=== PATIENT | female | born 1970 | race Caucasian/White ===

== ENCOUNTER → 2016-09-09 | Outpatient (CLI) | payer MEDICARE, BC ==
--- NOTE | 2016-09-12 11:52 | MM ---
Reason for exam: screening (asymptomatic). Last mammogram was performed 2 years and 1 month ago. History: Family history of breast cancer in paternal grandmother. Physical Findings: A clinical breast exam by your physician is recommended on an annual basis and results should be correlated with mammographic findings. MG 3D Screening Mammo W/Cad Bilateral CC and MLO view(s) were taken. Prior study comparison: July 23, 2013, bilateral digital screening mammo w/CAD. The breast tissue is extremely dense which could obscure a lesion on mammography. Finding: There are typically benign round, regional calcifications in the lower quadrant of the right breast. Previous mammotome biopsy in the right breast. There is no discrete abnormality. ASSESSMENT: Benign, BI-RAD 2 RECOMMENDATION: Routine screening mammogram of both breasts in 1 year.
== END | disposition home or self-care (01) ==
LOC: RADMAMWWP 11:00
PROVIDERS: ATTEND Obstetrics & Gynecology
DX: Z12.31 Encounter for screening mammogram for malignant neoplasm of breast (principal)
CPT/HCPCS: 77063; G0202

== ENCOUNTER → 2016-12-02 | Outpatient (CLI) | payer MEDICARE, BC ==
[2016-12-02 10:48] LABS: Basophils # (A) 0.1 k/uL (0-0.2); Basophils % (A) 1 %; CH 32.1; CHCM 33.1; Eosinophils % (A) 0 %; HCT 49.1 % (34.0-46.0); HDW 2.21; HGB 15.7 gm/dL (11.4-16.0); Luc # (Auto) 0.13; Luc % (Auto) 1; Lymphocytes # (A) 2.5 k/uL (1.0-4.8); Lymphocytes % (A) 26 %; MCH 31.2 pg (25.0-35.0); MCV 97.7 fL (80.0-100.0); Mean Platelet Volume 7.6; Monocytes # (A) 0.6 k/uL (0-1.0); Monocytes % (A) 6 %; Neutrophils # (A) 6.1 k/uL (1.3-7.7); Neutrophils % (A) 65 %; RBC 5.03 m/uL (3.80-5.40); RDW 13.9 % (11.5-15.5); WBC 9.3 k/uL (3.8-10.6); WBC (Perox) 9.06
[2016-12-02 10:56] LABS: ALT 33 U/L (9-52); AST 25 U/L (14-36); Alkaline Phosphatase 46 U/L (38-126); Anion Gap 11 mmol/L; Blood Urea Nitrogen 10 mg/dL (7-17); Calcium 9.7 mg/dL (8.4-10.2); Carbon Dioxide 26 mmol/L (22-30); Chloride 104 mmol/L (98-107); Glucose 62 mg/dL (74-99); Non-African American GFR(MDRD) >60 (>60 ml/min/1.73 sqM); Potassium 4.4 mmol/L (3.5-5.1); Sodium 141 mmol/L (137-145); Total Bilirubin 0.8 mg/dL (0.2-1.3); Total Protein 6.9 g/dL (6.3-8.2)
== END | disposition home or self-care (01) ==
LOC: LABWHC1 09:57
PROVIDERS: ATTEND Physical Medicine & Rehabilitation
DX: R53.83 Other fatigue (principal); R53.1 Weakness
CPT/HCPCS: 36415; 80053; 84439; 84443; 85025

== ENCOUNTER → 2016-12-02 | Outpatient (CLI) | payer OTHER ==
--- NOTE | 2016-12-02 10:19 | CT ---
EXAMINATION TYPE: CT brain wo con DATE OF EXAM: 12/02/2016 COMPARISON: NONE HISTORY: Sinus headache. Chronic sinusitis. History of chronic obstructive sleep apnea and tobacco ab use. CT DLP: 1050.4 mGycm. Automated Exposure Control for Dose Reduction was Utilized. TECHNIQUE: CT scan of the head is performed without contrast. FINDINGS: There is no acute intracranial hemorrhage, mass effect, or midline shift identified. Sca ttered areas of hypoattenuation are seen within the periventricular and subcortical white matter, mos t pronounced within the right frontal lobe. There is is symmetric prominence of the sulci and ventric ular system without evidence of transependymal edema. No evidence of hydrocephalus. There is inward bowing of the left lamina papyracea from prior fracture. Single septum is seen within the right maxillary sinus. Scattered mucosal thickening is present within the ethmoid sinuses. The r emaining visualized paranasal sinuses and mastoid air cells are well aerated. No fluid within the inn er ears. IMPRESSION: 1. No acute intracranial hemorrhage, mass effect, or midline shift is seen. 2. Nonspecific white matter changes, likely on the basis of chronic microangiopathy. 3. Scant mucosal thickening within the ethmoid sinuses with appropriate aeration of the remainder of the visualized paranasal sinuses and mastoid air cells. Note the entirety of the paranasal sinuses ar e not evaluated and CT sinus could be performed for further evaluation of the ostiomeatal complexes a nd paranasal sinuses. 4. Fracture deformity of the left lamina papyracea, from prior injury.
== END | disposition home or self-care (01) ==
LOC: RADCTMAIN 09:35 → EEVIPCON 09:40
PROVIDERS: ATTEND Physical Medicine & Rehabilitation
DX: R90.82 White matter disease, unspecified (principal); J34.89 Other specified disorders of nose and nasal sinuses; M95.9 Acquired deformity of musculoskeletal system, unspecified; G91.9 Hydrocephalus, unspecified
CPT/HCPCS: 70450

== ENCOUNTER → 2017-11-08 | Outpatient (CLI) | payer MEDICARE, BC ==
--- NOTE | 2017-11-09 15:18 | MM ---
Reason for exam: screening (asymptomatic). Last mammogram was performed 1 year and 2 months ago. History: Family history of breast cancer in paternal grandmother. Physical Findings: A clinical breast exam by your physician is recommended on an annual basis and results should be correlated with mammographic findings. MG 3D Screening Mammo W/Cad Bilateral CC and MLO view(s) were taken. Prior study comparison: September 09, 2016, bilateral MG 3d screening mammo w/cad. August 05, 2014, right breast MG work up mamm w CAD RT. The breast tissue is heterogeneously dense. This may lower the sensitivity of mammography. Finding: There are typically benign round, segmental calcifications in the posterior position of the right breast. Previous mammotome biopsy in the right breast. There is a chronic nodularity in the right breast at clip. There is no discrete abnormality. ASSESSMENT: Benign, BI-RAD 2 RECOMMENDATION: Routine screening mammogram of both breasts in 1 year.
== END | disposition home or self-care (01) ==
LOC: RADMAMWWP 09:26
PROVIDERS: ATTEND Obstetrics & Gynecology
DX: Z12.31 Encounter for screening mammogram for malignant neoplasm of breast (principal)
CPT/HCPCS: 77063; 77067

== ENCOUNTER → 2018-02-23 | Outpatient (CLI) | payer MEDICARE, BC ==
--- NOTE | 2018-02-23 12:31 | CT ---
EXAMINATION TYPE: CT brain wo con DATE OF EXAM: 02/23/2018 COMPARISON: 12/02/2016 INDICATION: Flaccid hemiplegia affecting right dominant DLP: 1138 mGycm, Automated exposure control for dose reduction was used. CONTRAST: None CT of the brain is performed utilizing 3 mm thick sections through the posterior fossa and 3 mm thick sections through the remaining calvarium. Study is performed within 24 hours of arrival to the hosp [facility]. No abnormal hyperdensity is present to suggest an acute intracranial hemorrhage. No mass lesion is evident. No acute infarcts are evident. There is a stable hypodense area within the subcortical white matter o f the right frontal lobe Ventricles and sulci are appropriate for the patient age. Paranasal sinuses and mastoid air cells within the [id number] are clear. IMPRESSIONS: 1. No acute intracranial process. 2. Stable right frontal white matter changes
== END | disposition home or self-care (01) ==
LOC: RADCTMAIN 11:19
PROVIDERS: ATTEND Physical Medicine & Rehabilitation
DX: R90.89 Other abnormal findings on diagnostic imaging of central nervous system (principal)
CPT/HCPCS: 70450

== ENCOUNTER 2018-08-09 12:54 | Emergency (ER) | payer MEDICARE, BC ==
[2018-08-09 15:23] VITALS: RESP 16
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
--- NOTE | 2018-08-09 16:17 | CT ---
EXAMINATION TYPE: CT orbits wo con DATE OF EXAM: 08/09/2018 COMPARISON: None HISTORY: Left orbit pain and contusion post fall. CT DLP: 647.8 mGycm Automated exposure control for dose reduction was used. FINDINGS: Orbits are examined in the axial plane at 2 mm thick sections. Reconstructed images in the coronal pl ane are reviewed on the computer. The globes are symmetrical. Small amount of air is adjacent to the right orbit likely under the lid. Nasal bones are intact. Greater wings of sphenoid are normal. Sec traumatic arches are intact. Maxill maxine sinus appiah are intact. Paranasal sinuses are clear. Soft tissues appear within normal limits. There is right septal deviation. Estimated units are patent. Orbital floors are normal. IMPRESSION: NORMAL BILATERAL ORBITS.
--- NOTE | 2018-08-09 16:31 | CT ---
EXAMINATION TYPE: CT brain anjelica wo con DATE OF EXAM: 08/09/2018 COMPARISON: 02/23/2018 HISTORY: pain post fall CT DLP: 869.3 mGycm, Automated exposure control for dose reduction was used. CONTRAST: Patient injected with 0 mL of Isovue 300. CT of the brain is performed utilizing 3 mm thick sections through the posterior fossa and 3 mm thick sections through the remaining calvarium. Study is performed within 24 hours of arrival to the hospital. No abnormal hyperdensity is present to suggest an acute intracranial hemorrhage. No mass lesion is evident. No acute infarcts are evident. There is an old hypodensity through the right frontal lobe may be an anterior subcortical infarct which was present previously. Ventricles and sulci are appropriate for the patient age. Paranasal sinuses and mastoid air cells within the [id number]-ls-dxcs are clear. IMPRESSIONS: 1. No acute intracranial process. 2. Old subcortical hypodensity may be prior ischemic change. CT cervical spine. COMPARISON: None CT of the cervical spine is performed in the axial plane at 2 mm thick sections. Reconstructed image s in the coronal, and sagittal plane are reviewed on the computer. No acute fractures are evident. Cervical kyphosis is present centered at C5. There is narrowing of the C5-6 C6-7 disc space. Large anterior vertebral body spurs present at C6 Vertebral body heights are preserved. No spinal canal stenosis is evident. No neural foraminal stenosis is evident. IMPRESSIONS: 1. Cervical kyphosis. 2. No acute osseous abnormality.
[2018-08-09 17:25] VITALS: BP 103/67; PULSE 74; TEMP 98.1
== END 2018-08-09 17:24 | disposition home or self-care (01) ==
LOC: EC 12:54
DX: S05.12XA Contusion of eyeball and orbital tissues, left eye, initial encounter (principal); F17.200 Nicotine dependence, unspecified, uncomplicated; Z87.820 Personal history of traumatic brain injury; Z79.899 Other long term (current) drug therapy; Z88.8 Allergy status to other drugs, medicaments and biological substances; W01.0XXA Fall on same level from slipping, tripping and stumbling without subsequent striking against object, initial encounter; Y93.01 Activity, walking, marching and hiking
CPT/HCPCS: 70450; 70480; 72125; 99284

== ENCOUNTER 2018-09-02 12:50 | Emergency (ER) | payer MEDICARE, BC ==
[2018-09-02 12:58] VITALS: TEMP 98.2
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
--- NOTE | 2018-09-02 13:52 | CT ---
EXAMINATION TYPE: CT brain cspine wo con DATE OF EXAM: 09/02/2018 COMPARISON: Previous study dated 08/09/2018 HISTORY: Fall CT DLP: 1222 mGycm Automated exposure control for dose reduction was used. TECHNIQUE: CT scan of the head and cervical spine are performed without contrast. FINDINGS: BRAIN: There is a hypodensity in the right frontal lobe, unchanged from previous and likely due to pr evious ischemic insult. Central structures are midline. There is no evidence hydrocephalus. No acute focal lesion, mass effec t or midline shift is seen. I do not see evidence of intracranial blood. Visualized portions of the paranasal sinuses and mastoids are clear. The bony calvarium is intact. IMPRESSION: 1. NO ACUTE INTRACRANIAL ABNORMALITY. 2. EVIDENCE OF OLD INSULT TO THE RIGHT FRONTAL REGION. CERVICAL SPINE: Visualized portions of the lungs are clear. Prevertebral soft tissues are normal. There is straightening of the normal cervical lordosis. Alignment remains normal. There are normal at lantoaxial relationships. There is hypertrophic spondylosis most marked at C6-7 but also present at C 4-5 and C5-6. There is mild disc space loss at these levels also. No definite protrusions are seen. No fractures are identified. IMPRESSION: 1. NO ACUTE OSSEOUS LESION. 2. DEGENERATIVE CHANGE.
[2018-09-02 14:53] VITALS: BP 110/77; PULSE 66; RESP 16
== END 2018-09-02 14:45 | disposition home or self-care (01) ==
LOC: EC 12:50
DX: S09.90XA Unspecified injury of head, initial encounter (principal); M54.2 Cervicalgia; F17.200 Nicotine dependence, unspecified, uncomplicated; Z88.8 Allergy status to other drugs, medicaments and biological substances; Z79.899 Other long term (current) drug therapy; Z87.820 Personal history of traumatic brain injury; Z98.890 Other specified postprocedural states; W01.190A Fall on same level from slipping, tripping and stumbling with subsequent striking against furniture, initial encounter; Y92.009 Unspecified place in unspecified non-institutional (private) residence as the place of occurrence of the external cause
CPT/HCPCS: 70450; 72125; 99283

== ENCOUNTER → 2019-01-25 | Outpatient (CLI) | payer OTHER ==
[2019-01-25 13:04] LABS: Basophils # (A) 0.1 k/uL (0-0.2); Basophils % (A) 1 %; Eosinophils # (A) 0.1 k/uL (0-0.7); Eosinophils % (A) 1 %; HCT 46.4 % (34.0-46.0); HGB 15.5 gm/dL (11.4-16.0); Lymphocytes # (A) 2.8 k/uL (1.0-4.8); Lymphocytes % (A) 24 %; MCH 31.3 pg (25.0-35.0); MCHC 33.3 g/dL (31.0-37.0); MCV 93.9 fL (80.0-100.0); Mean Platelet Volume 7.4; Monocytes # (A) 0.6 k/uL (0-1.0); Monocytes % (A) 5 %; Neutrophils # (A) 7.9 k/uL (1.3-7.7); Neutrophils % (A) 68 %; Platelet Count 271 k/uL (150-450); RBC 4.94 m/uL (3.80-5.40); WBC 11.7 k/uL (3.8-10.6)
[2019-01-25 13:19] LABS: African American GFR (CKD) >90 (>60 ml/min/1.73 sqM); Anion Gap 8 mmol/L; Blood Urea Nitrogen 14 mg/dL (7-17); Calcium 9.4 mg/dL (8.4-10.2); Carbon Dioxide 23 mmol/L (22-30); Chloride 109 mmol/L (98-107); Glucose 81 mg/dL (74-99); Potassium 4.6 mmol/L (3.5-5.1); Sodium 140 mmol/L (137-145)
[2019-01-25 13:36] LABS: T4, Free (Free Thyroxine) 1.25 ng/dL (0.78-2.19)
[2019-01-25 20:25] LABS: Folate, Serum 12.9 ng/mL
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
== END ==
LOC: NEUROMAIN 09:57
PROVIDERS: ATTEND Physical Medicine & Rehabilitation
DX: S06.9X1S Unspecified intracranial injury with loss of consciousness of 30 minutes or less, sequela (principal)
CPT/HCPCS: 80048; 82607; 82746; 84439; 84443; 85025; 95816

== ENCOUNTER → 2019-01-31 | Outpatient (CLI) | payer OTHER, MEDICARE, BC ==
--- NOTE | 2019-01-31 14:43 | MR ---
EXAMINATION TYPE: MR brain wo con DATE OF EXAM: 01/31/2019 COMPARISON: CT brain dated 09/02/2018 HISTORY: Traumatic brain injury. Recurrent falls. TECHNIQUE: Multiplanar, multisequence images of the brain and brainstem is performed without intravenous contras t. FINDINGS: Diffusion weighted images demonstrate no evidence of a recent infarct or other diffusion ab normality. Elongated area of T2/FLAIR hyperintensity within the frontal lobe appears and scoliosis possibly nicole g the prior site of an intraventricular device as it extends from the up-white matter interface to the anterior horn of the right lateral ventricle. There are other scattered foci of T2/FLAIR hyperint ensity in the subcortical and periventricular white matter that are all subcentimeter (at least 24 gonzalez pratentorial foci). Old left thalamic lacunar injury is also seen. This is subcentimeter. GRE sequence demonstrates no intra-axial blooming artifact to indicate chronic hemosiderin deposition . There is no extra-axial fluid collection. The ventricular system and cisternal spaces are slightly asymmetric with enlargement of the posterior horn of the left lateral ventricle in comparison to the right although this may be congenital as it is unchanged from the prior brain CT. There is also mild ventricular prominence and peripheral sulci prominence that is slightly out of proportion to the asya ent's age. There appears to be partial dysgenesis of the corpus callosum as there is a hypoplastic splenium in t he posterior body is not well seen on sagittal images such as T1 image 11. The craniocervical junctio n appears within normal limits. Mild mucosal thickening is seen in the ethmoid sinuses. The remaining visualized sinuses are clear and the globes are intact. Prior fracture of the left lamina Propecia i s better seen on CT. There is a lower FLAIR signal than what is expected in the typical globus pallidus, putamen, and thal ami. IMPRESSION: 1. Encephalomalacia of the right frontal lobe, possibly from prior intraventricular device placement as this appears linear or from prior injury. 2. No acute infarct, midline shift or mass effect. 3. Cerebral atrophy is slightly out of proportion to this patient's age and advanced but is seen diff usely without lobar predominance. 4. Slightly lower FLAIR signal within the basal ganglia than what is expected, which can be seen in p rior hypoxemia, Parkinson's syndrome, aging, or hemosiderin deposition (hemosiderin deposition is unl ikely as there is no blooming artifact on GRE sequence). 5. Mild burden nonspecific white matter change, likely on the basis of chronic microangiopathy given the distribution. 6. Partial dysgenesis of the corpus callosum is noted.
== END | disposition home or self-care (01) ==
LOC: RADMRIMAIN 11:36
PROVIDERS: ATTEND Physical Medicine & Rehabilitation
DX: G93.89 Other specified disorders of brain (principal); G31.9 Degenerative disease of nervous system, unspecified; S06.9X0A Unspecified intracranial injury without loss of consciousness, initial encounter
CPT/HCPCS: 70551

== ENCOUNTER → 2019-02-11 | Outpatient (CLI) | payer OTHER, MEDICARE, BC ==
--- NOTE | 2019-02-11 22:07 | MR ---
EXAMINATION TYPE: MR shoulder RT wo con DATE OF EXAM: 02/11/2019 COMPARISON: None HISTORY: Rt shoulder pain, impingment TECHNIQUE: Multiplanar, multisequence imaging of the right shoulder is performed without contrast. FINDINGS: Rotator Cuff: There is a rotator cuff tear, full-thickness supraspinatus tendon tear with retraction as noted to the level of the acromioclavicular joint. Infraspinatus tendon shows abnormal increased s ignal and thickening compatible with tendinosis. Acromioclavicular Joint: Arthropathy change is present, hypertrophic change extends to the inferior a spect of the joint, coronal image #10. There is a distal acromial spur Glenohumeral Joint: Intact Labrum: The labrum appears grossly intact given limitation of non-arthrogram study. Biceps Tendon: The long head of biceps is in normal location within bicipital groove. Fluid signal al louise the long head of biceps tendon Bone marrow signal: Pseudocysts are present within the humeral head. Other: There is a joint effusion. Fluid signal present in the subacromial subdeltoid bursa. IMPRESSION: Chronic rotator cuff tear with retraction. Joint effusion. Correlate for impingement.
== END | disposition home or self-care (01) ==
LOC: RADMRIMAIN 18:10
PROVIDERS: ATTEND Orthopaedic Surgery
DX: M75.101 Unspecified rotator cuff tear or rupture of right shoulder, not specified as traumatic (principal); M50.10 Cervical disc disorder with radiculopathy, unspecified cervical region; M19.011 Primary osteoarthritis, right shoulder; F17.210 Nicotine dependence, cigarettes, uncomplicated

== ENCOUNTER → 2020-03-17 | Outpatient (CLI) | payer MEDICARE, BC ==
--- NOTE | 2020-03-17 17:31 | MR ---
EXAMINATION TYPE: MR cervical spine wo con DATE OF EXAM: 03/17/2020 COMPARISON: CT cervical spine 09/02/2018 HISTORY: Cervicalgia, neck pain, tingling in rt arm and fingers TECHNIQUE: Multiplanar, multisequence images of the cervical spine were acquired. C2-C3: No evidence for degenerative disc disease. No disc bulge/herniation or protrusion. No Canal stenosis. Foramina are patent bilaterally. C3-C4: Posterior disc bulge causes slight anterior mass effect on the thecal sac. No significant spin al stenosis or foraminal encroachment. C4-C5: Posterior extension endplate disc complex causes minimal anterior mass effect on the thecal sa c. No significant foraminal encroachment. No central stenosis. C5-C6: Posterior extension of endplate disc complex is present, there is a posterior central disc her niation contacting the anterior cervical cord. Foraminal encroachment is present greater on the left than on the right due to uncovertebral joint hypertrophy. On mild spinal stenosis. C6-C7: Posterior extension endplate disc complex causes anterior mass effect on the thecal sac, mild spinal stenosis. Uncovertebral joint hypertrophy and facet arthropathy results in some right-sided fo raminal encroachment. C7-T1: No evidence for degenerative disc disease. No disc bulge/herniation or protrusion. No Canal stenosis. Foramina are patent bilaterally. Cervical segments are intact. There is normal alignment. Cervical spinal cord is of normal signal. Craniovertebral junction relationships are within normal limits. Focus of increased signal in the C 2 vertebral body likely represents hemangioma, there is multilevel spondylosis, endplate discogenic m arrow signal change, loss of disc height signal present at intervertebral levels. IMPRESSION: Degenerative disc disease, multilevel foraminal encroachment. Small posterior disc herniation noted a t C5-6. Facet arthropathy.
== END | disposition home or self-care (01) ==
LOC: RADMRIMAIN 13:51
PROVIDERS: ATTEND Orthopaedic Surgery
DX: M50.122 Cervical disc disorder at C5-C6 level with radiculopathy (principal); M50.10 Cervical disc disorder with radiculopathy, unspecified cervical region; M47.22 Other spondylosis with radiculopathy, cervical region
CPT/HCPCS: 72141

== ENCOUNTER → 2020-04-06 | Outpatient (CLI) | payer MEDICARE, BC ==
[2020-04-06 09:01] VITALS: BP 125/76; PULSE 98; RESP 16; TEMP 97.6
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
== END | disposition home or self-care (01) ==
LOC: PNWHC3 08:46
PROVIDERS: ATTEND Specialist
DX: M50.10 Cervical disc disorder with radiculopathy, unspecified cervical region (principal); M47.22 Other spondylosis with radiculopathy, cervical region; F17.200 Nicotine dependence, unspecified, uncomplicated; Z79.899 Other long term (current) drug therapy; Z79.891 Long term (current) use of opiate analgesic; Z88.8 Allergy status to other drugs, medicaments and biological substances
CPT/HCPCS: 99211

== ENCOUNTER 2020-04-28 08:31 | Day surgery (SDC) | payer MEDICARE, BC ==
[2020-04-21 15:31] VITALS: BMI 25.7
[2020-04-28] MEDS ORDERED: LACTATED RINGERS 1,000 ML IV SCH (08:41)
[2020-04-28] MEDS ORDERED: LIDOCAINE 1% (10MG/ML) FOR IV START INTRADERMA ONE (09:10)
[2020-04-28 09:12] VITALS: TEMP 98
[2020-04-28 09:14] LABS: Glucose,Whole Blood 95 mg/dL (75-99)
[2020-04-28] MEDS ORDERED: DEXAMETHASONE SOD PHOSPHATE 10 MG/ML 1 ML VIAL ONE (09:33)
[2020-04-28] MEDS ORDERED: IOPAMIDOL M200 10 ML VIAL ONE (09:33)
--- NOTE | 2020-04-28 09:43 | P.PCN ---
Date of Procedure: 04/28/20 Procedure(s) Performed: . PROCEDURE 1. Cervical epidural steroid injection under fluoroscopic guidance, C7-T1 (fluoroscopy images available in the radiology department ) 2. Cervical epidurogram. PREOPERATIVE DIAGNOSIS: 1- Cervical Degenerative Disc Diseases 2- Cervical radiculopathy., 3-cervical spondylosis with cervical Facet arthropathy without myelopathy POSTOPERATIVE DIAGNOSIS: : 1- Cervical Degenerative Disc Diseases , 2- Cervical radiculopathy. 3-,cervical spondylosis with cervical Facet arthropathy without myelopathy ANESTHESIA: Local anesthesia with lidocaine 1 % 3 ml only. EBL 0 PROCEDURE INDICATION: The patient with neck pain and radiculitis unresponsive to conservative treatment consents for procedure. PROCEDURE DESCRIPTION / TECHNIQUE: The patient was seen and identified in the preoperative area. Risks, benefits, complications, including but not limited to infections ,bleeding , allergic reactions to the medications ,and not complete pain releife, and alternatives were discussed with the patient, the patient agreed to proceed with the procedure and signed the consent. Patient was taken to the OR and time out was completed. The patient was placed in the prone position on the procedure table. A pillow was placed under the patients chest to increase the cervical interlaminar space. The cervical area was prepped and draped in the usual sterile fashion. Vital signs were closely monitored during the procedure. Using anterior-posterior fluoroscopy, the C7-T1 interlaminar space was identified and the skin over this site was marked and then infiltrated with 1% lidocaine subcutaneously. Subsequently, a 20-gauge 3-1/2-inch Tuohy epidural needle was inserted and advanced toward the epidural space by means of the ``hanging-drop technique and guided by AP and lateral fluoroscopy. The correct needle position in the epidural space was verified with the injection of 2 mL of the water soluble contrast dye Isovue-200 and observing an excellent epidurogram with the epidural spread of the dye, after negative aspiration for blood and CSF and in the absence of paresthesias. Again after negative aspiration, mixture containing 20 mg Dexamethasone and 2 ml of preservative- free normal saline injected and a washout of epidurogram was seen. Needle was withdrawn intact, skin was cleansed, and bandages were applied. Complications= none. Disposition= patient was placed in supine position and transferred to the recovery room area in stable condition and there was no evidence of upper or lower extremity motor or sensory deficit after the procedure patient was discharged from recovery room after discharge criteria met and home discharge instructions was given by the staff and patient will follow with the pain clinic in 2-4 weeks
[2020-04-28] MEDS ORDERED: IV FLUID CONTINUATION 1,000 ML IV ONE (09:50)
[2020-04-28 10:06] VITALS: BP 114/72; PULSE 65; RESP 16
--- NOTE | 2020-04-28 14:01 | FL ---
Fluoroscopy HISTORY: Pain 1 seconds fluoroscopy time supplied to the referring clinician. 1 intraoperative C-arm images docume nt the procedure. See dictated report from anesthesia.
== END 2020-04-28 10:20 | disposition home or self-care (01) ==
LOC: ORPAIN 08:31
PROVIDERS: ATTEND Specialist
DX: M47.22 Other spondylosis with radiculopathy, cervical region (principal); M50.10 Cervical disc disorder with radiculopathy, unspecified cervical region; Z87.820 Personal history of traumatic brain injury; G81.94 Hemiplegia, unspecified affecting left nondominant side; R53.1 Weakness; R41.3 Other amnesia; H57.89 Other specified disorders of eye and adnexa; I45.6 Pre-excitation syndrome; Z91.81 History of falling; Z98.890 Other specified postprocedural states; F17.200 Nicotine dependence, unspecified, uncomplicated; Z79.899 Other long term (current) drug therapy; Z88.8 Allergy status to other drugs, medicaments and biological substances
CPT/HCPCS: 81025; 62321; J1100; Q9966

== ENCOUNTER → 2020-05-22 | Day surgery (SDC) | payer MEDICARE, BC ==
[2020-05-20 12:31] VITALS: BMI 26.6
[~2020-05-22] MED LIST: DEXAMETHASONE SOD PHOSPHATE 10 MG/ML 1 ML VIAL ONE; IOPAMIDOL M200 10 ML VIAL ONE; LACTATED RINGERS 1,000 ML IV SCH; MIDAZOLAM 2 MG/2 ML VIAL ONE; SODIUM CHLORIDE 0.9% (PF) 10 ML VIAL ONE; fentaNYL (PF) 50 MCG/ML 2 ML AMP ONE
[2020-05-22 10:26] VITALS: TEMP 97.8
--- NOTE | 2020-05-22 10:46 | P.PCN ---
Date of Procedure: 05/22/20 Procedure(s) Performed: PROCEDURE 1. Cervical epidural steroid injection under fluoroscopic guidance, C7-T1 (fluoroscopy images available in the radiology department ) 2. Cervical epidurogram. PREOPERATIVE DIAGNOSIS: 1- Cervical Degenerative Disc Diseases 2- Cervical radiculopathy., 3-cervical spondylosis with cervical Facet arthropathy without myelopathy POSTOPERATIVE DIAGNOSIS: : 1- Cervical Degenerative Disc Diseases , 2- Cervical radiculopathy. 3-,cervical spondylosis with cervical Facet arthropathy without myelopathy ANESTHESIA: Monitored anesthesia care by anesthesia department EBL 0 PROCEDURE INDICATION: The patient with neck pain and radiculitis unresponsive to conservative treatment consents for procedure. PROCEDURE DESCRIPTION / TECHNIQUE: The patient was seen and identified in the preoperative area. Risks, benefits, complications, including but not limited to infections ,bleeding , allergic reactions to the medications ,and not complete pain releife, and alternatives were discussed with the patient, the patient agreed to proceed with the procedure and signed the consent. Patient was taken to the OR and time out was completed. The patient was placed in the prone position on the procedure table. A pillow was placed under the patients chest to increase the cervical interlaminar space. The cervical area was prepped and draped in the usual sterile fashion. Vital signs were closely monitored during the procedure. Using anterior-posterior fluoroscopy, the C7-T1 interlaminar space was identified and the skin over this site was marked and then infiltrated with 1% lidocaine subcutaneously. Subsequently, a 20-gauge 3-1/2-inch Tuohy epidural nee dle was inserted and advanced toward the epidural space by means of the ``hanging-drop technique and guided by AP and lateral fluoroscopy. The correct needle position in the epidural space was verified with the injection of 2 mL of the water soluble contrast dye Isovue-200 and observing an excellent epidurogram with the epidural spread of the dye, after negative aspiration for blood and CSF and in the absence of paresthesias. Again after negative aspiration, mixture containing 20 mg Dexamethasone and 2 ml of preservative- free normal saline injected and a washout of epidurogram was seen. Needle was withdrawn intact, skin was cleansed, and bandages were applied. Complications= none. Disposition= patient was placed in supine position and transferred to the recovery room area in stable condition and there was no evidence of upper or lower extremity motor or sensory deficit after the procedure patient was discharged from recovery room after discharge criteria met and home discharge instructions was given by the staff and patient will follow with the pain clinic in 2-4 weeks
[2020-05-22 10:53] VITALS: RESP 17
--- NOTE | 2020-05-22 10:57 | FL ---
Fluoroscopy HISTORY: Pain 2 seconds fluoroscopy time supplied to the referring clinician. intraoperative C-arm images document the procedure. See dictated report from anesthesia.
[2020-05-22 11:03] VITALS: BP 112/70; PULSE 72
== END ==
LOC: ORPAIN 09:31
PROVIDERS: ATTEND Specialist
DX: M50.10 Cervical disc disorder with radiculopathy, unspecified cervical region (principal); M47.22 Other spondylosis with radiculopathy, cervical region; I45.6 Pre-excitation syndrome; F32.9 Major depressive disorder, single episode, unspecified; K21.9 Gastro-esophageal reflux disease without esophagitis; Z88.8 Allergy status to other drugs, medicaments and biological substances; Z79.899 Other long term (current) drug therapy
CPT/HCPCS: 81025; 62321; J2250; J1100; J3010; Q9966

== ENCOUNTER → 2020-06-08 | Outpatient (CLI) | payer MEDICARE, BC ==
[2020-06-08 11:23] VITALS: BP 109/73; RESP 18; TEMP 98.7
[2020-06-08 11:27] VITALS: PULSE 86
--- NOTE | 2020-06-08 11:27 | P.PN ---
Subjective Progress Note Date: 06/08/20 This is a 49-year-old lady with history of brain injury resulted in left hemiparesis. She had 2 cervical epidural steroid injection for neck pain and numbness in the right hand. Her pain improved by at least 95% after her second epidural steroid injection. And her numbness in the right hand also improved after the cervical epidural steroid injection. Patient denies new-onset weakness, bowel/bladder incontinence, or any other signs or symptoms of cauda equina syndrome. There are no signs of acute intoxication, and no indications of medication diversion or overuse. In addition to above, 13-point review of systems is also negative for chest pain, shortness of breath, changes in vision, changes in hearing, new onset weakness, abdominal pain, diarrhea, extreme fatigue, malaise, fever, skin changes, homicidal or suicidal ideation, or bowel or bladder incontinence. Vital Signs: Reviewed in EMR Gen: AAOx3, NAD HEENT: PERRLA,hearing grossly normal Pulm: resp unlabored Neck: supple, trachea midline Neuro exam of the lower extremities: Decreased muscle strength to 4 out of 5 on the left side Neuro exam of the upper extremities showed contracture on the left hand and decreased handgrip on the left side Straight leg raising test: Gordo's test: Range of motion of the lumbar spine: Facet loading test: Tenderness in the paravertebral musculature: Mild tenderness in the cervical paravertebral musculature Neuro: CN II-XII grossly intact, Imaging: Reviewed in EMR/chart Assessment: Brain injury with left hemiparesis Cervical spondylosis without myelopathy Cervical radiculopathy Plan: 1. Explanation: Opioid and psychological risk scores were reviewed. Diagnoses, prognoses, and multiple treatment options including but not limited to physical therapy, interventional therapies, adjuvant medical therapies, narcotic medication therapies, and surgery were discussed with the patient and all questions were answered to the patient's satisfaction. 2. Opioid agreement: Signed with the patient and the patient is warned not to use opioids while driving or before driving and not to combine opioids with benzodiazepines or alcohol. 3. Counseling: The patient was counseled extensively on SMOKING CESSATION, BODY MASS INDEX, EXERCISE. Specifically, the patient was instructed regarding the importance of smoking cessation, obesity, and exercise in the context of both chronic pain and overall health. 4. Procedures: None for now 5. Consultations: None 6. Investigations: None 7. Medications: None 8. Disposition: Return to clinic as needed 9. Maps were reviewed and were appropriate. Objective - Vital Signs Vital signs: Vital Signs Temp 98.7 F 06/08/20 11:20 Pulse Resp 18 06/08/20 11:20 BP 109/73 06/08/20 11:20 Pulse Ox 98 06/08/20 11:20
== END | disposition home or self-care (01) ==
LOC: PNWHC3 11:08
PROVIDERS: ATTEND Anesthesiology
DX: M47.22 Other spondylosis with radiculopathy, cervical region (principal); G81.90 Hemiplegia, unspecified affecting unspecified side; Z87.820 Personal history of traumatic brain injury
CPT/HCPCS: 99211

== ENCOUNTER → 2020-11-30 | Outpatient (CLI) | payer MEDICARE, BC ==
[2020-11-30 10:45] VITALS: BP 102/65; PULSE 93; RESP 18; TEMP 97.8
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
== END | disposition home or self-care (01) ==
LOC: PNWHC3 10:18
PROVIDERS: ATTEND Specialist
DX: M47.892 Other spondylosis, cervical region (principal); M50.33 Other cervical disc degeneration, cervicothoracic region; M54.12 Radiculopathy, cervical region
CPT/HCPCS: 99211

== ENCOUNTER → 2021-01-05 | Day surgery (SDC) | payer MEDICARE, BC ==
[2020-12-31 10:28] VITALS: BMI 26.6
[~2021-01-05] MED LIST changes: -DEXAMETHASONE SOD PHOSPHATE 10 MG/ML 1 ML VIAL ONE; -IOPAMIDOL M200 10 ML VIAL ONE; -MIDAZOLAM 2 MG/2 ML VIAL ONE; -SODIUM CHLORIDE 0.9% (PF) 10 ML VIAL ONE; -fentaNYL (PF) 50 MCG/ML 2 ML AMP ONE
== END ==
LOC: ORPAIN 10:14
DX: Z53.9 Procedure and treatment not carried out, unspecified reason (principal)

== ENCOUNTER 2021-02-09 10:05 | Day surgery (SDC) | payer MEDICARE, BC ==
[2021-02-05 13:47] VITALS: BMI 26.4
[2021-02-09 10:43] VITALS: RESP 16; TEMP 97.9
[2021-02-09] MEDS ORDERED: LACTATED RINGERS 1,000 ML IV SCH ×2 (10:43→11:00)
[2021-02-09] MEDS ORDERED: MIDAZOLAM 2 MG/2 ML VIAL ONE (10:48)
[2021-02-09] MEDS ORDERED: IOPAMIDOL M200 10 ML VIAL ONE (10:48)
[2021-02-09] MEDS ORDERED: fentaNYL (PF) 50 MCG/ML 2 ML AMP ONE (10:48)
[2021-02-09] MEDS ORDERED: DEXAMETHASONE SOD PHOSPHATE 10 MG/ML 1 ML VIAL ONE (10:48)
--- NOTE | 2021-02-09 11:04 | P.PCN ---
Date of Procedure: 02/09/21 Description of Procedure: Pre- and Post-operative Diagnosis: Cervical radiculopathy Procedure: C7-T1 Inter-Laminar Cervical Epidural Steroid Injection under biplanar fluoroscopy Surgeon: Lucio García Anesthesia: Local: 1% Lidocaine, IV sedation : Versed, and fentanyl. Complications: None. Estimated blood loss: None Specimens removed: None Fluoroscopic image: saved to electronic medical records. Indications for Procedure: The patient has been suffering from neck pain and pain radiating to the upper extremity . Inadequate pain control with pharmacologic regimen. Patient had a previous cervical epidural steroid injection with good pain relief. Cervical epidural steroid injections with good pain relief An inter-laminar approach cervical epidural steroid injection was scheduled for the patient. Procedure and Findings: The patient was seen and examined in the holding area. The written informed consent was obtained after explaining the risks, benefits, alternatives of the procedure to the patient. The patient was brought to the procedure room and was placed in the prone position on the operating table. A pillow was placed under the upper chest. Standard anesthesia monitoring was done through out the procedure. Timeout was completed. The skin preparation was done with DuraPrep 1 and draping was done in usual sterile fashion. Sterile technique was observed throughout the procedure. Under fluoroscopic guidance, C7 T1 inter-laminar space was identified. 3 ml of 1% Lidocaine was injected with a 25 gauge needle to achieve adequate local anesthesia of the skin and subcutaneous tissue. A 20 gauge, 3.5 inch Tuohy type epidural needle was placed and gradually advanced up to the epidural space using loss of resistance technique and fluoroscopic guidance. Lateral, oblique fluoroscopic views confirm the needle position. No paresthesia was noted. A negative aspiration was confirmed and then 1 ml of Isovue-200 was injected. A good dye spread was seen in the epidural space and it was negative for any intrathecal, intraneural or intravascular spread. A total of 6 ml solution containing 10 mg Dexamethasone, and 5 ml preservative-free Normal Saline was injected slowly with intermittent aspiration. The needle was removed intact, area was cleaned and bandage was applied. Disposition : The patient tolerated the procedure very well. The patient was transferred to the recovery room and remained stable until discharged home. The patient was given detailed discharge instructions for bleeding, infection, increased pain at the injection site, and was advised to seek immediate medical attention should significant side effects develop. The patient will be followed up with our Pain Clinic within 4 weeks for follow-up visit.
[2021-02-09] MEDS ORDERED: IV FLUID CONTINUATION 1,000 ML IV ONE ×2 (11:08)
[2021-02-09 11:21] VITALS: BP 117/84; PULSE 76
--- NOTE | 2021-02-09 11:46 | FL ---
EXAMINATION TYPE: FL guided pain mgmt statistic DATE OF EXAM: 02/09/2021 HISTORY: Fluoroscopy time 8 seconds of fluoroscopy provided. IMPRESSION: 1. Fluoroscopy time.
== END 2021-02-09 11:59 | disposition home or self-care (01) ==
LOC: ORPAIN 10:05
DX: M54.12 Radiculopathy, cervical region (principal); Z88.8 Allergy status to other drugs, medicaments and biological substances; Z98.890 Other specified postprocedural states
CPT/HCPCS: 81025; 62321; J2250; J1100; J3010; Q9966; 99152

== ENCOUNTER → 2021-03-15 | Outpatient (CLI) | payer MEDICARE, BC ==
[2021-03-15 09:39] VITALS: BP 107/74; PULSE 60; RESP 18
--- NOTE | 2021-03-15 09:55 | P.PN ---
Subjective Progress Note Date: 03/15/21 This is follow up visite for this 50 years old female with history of severe neck pain with radiation to the right upper extremity associated with numbness and tingling sensation, patient had traumatic brain injury in , caused left sided hemiparalysis, and she has left upper and left lower extremity weakness, patient had physical therapy without any improvement , previously we have done cervical epidural steroid injection which provided her with excellent relief, and today she is complaining of right-sided neck pain, radiation to the right upper extremity, the pain constant, she denies any weakness in her right side, she denies any sensory deficit in her right upper extremity Physical Examinations : -Constitutiona : Cooperative , not in acute distress . -HEENT : nech : supple , no Lymphadenopathy , normal thyroid size - neurologic : Left upper extremity hemiparesis, lower extremity hemiparesis. -psychatric : alert , oriented X 3 , appropriate affect , intact judgment and insight . -Lymphatic : no Lymphadenopathy . - musculoskeltal : Cervical Spine motor stregnth in the deltoid and b iceps, normal right side , decreased Left side 1-2/5 motor stregnth biceps and the wrist extensors normal right side , decreased to 2/5 left side . motor stregnth in the triceps muscle . normal Right side , decreased 2/5 Left side deep tendon reflexes normal at the biceps , normal at Brachioradialis , normal at triceps. cervical facet loading test= Positive right Spurling test= positive right . Neck distraction test= positive right Tona sign= positive right Lumber spine moter stegnth lower extremities ,thigh and legs 5/5 Right side , 2-3/5 Left side . Results MRI of the cervical spine= multilevel cervical degenerative disc disease and foraminal stenosis and facet joint arthropathy at C5 6 C6 7. Conduction studies= mild carpal tunnel syndrome Assessment and plan=1-cervical radiculopathy. 2-cervical degenerative disc disease. 3-cervical spondylosis with cervical facet arthropathy without myelopathy Patient could benefit from cervical epidural steroid injection at C7-T1 , right paramedian approach Time with Patient: less than 30 PQRS Measure Charge Sheet Measure #130: Documentation of Current Meds in Medical Chart: Patient's medications documented in chart Measure #226: Tobacco Use: Screen & Cessation Intervention: Pt screened for tobacco use AND intervention given Measure #111: Pneumonia Vaccination: Pneumococcal vaccine administered or previously received Measure #47: Advance Care Plan: Advance care planning discussed & documented, pt chose/unable to give Measure #412: Opioid Treatment Agreement: No documentation of signed opioid treatment agreement Measure #408: Opioid Therapy Follow-up Evaluation: Patient had NO f/u eval minimum every 3 months during opioid therapy Measure #317: Preventitive Care & Scrn High Bld Press & F/U: Normal blood pressure, f/u not required Measure #128: Body Mass Index (BMI) Screening & Follow-up: BMI documented ABOVE normal parameters - f/u documented Measure #131: Pain Assessment & Follow-up: Pain positive & plan documented, Follow-up scheduled Measure #431: Unhealthy Alcohol Use Preventative Care & Scrn: Patient not identified as an unhealthy alcohol user PQRS Narrative: Objective - Vital Signs Vital signs: Vital Signs Temp Pulse 60 03/15/21 09:33 Resp 18 03/15/21 09:33 BP 107/74 03/15/21 09:33 Pulse Ox 98 03/15/21 09:33
== END ==
LOC: PNWHC3 09:12
PROVIDERS: ATTEND Specialist
DX: M47.22 Other spondylosis with radiculopathy, cervical region (principal); M50.10 Cervical disc disorder with radiculopathy, unspecified cervical region; F17.200 Nicotine dependence, unspecified, uncomplicated; Z88.1 Allergy status to other antibiotic agents; Z88.8 Allergy status to other drugs, medicaments and biological substances
CPT/HCPCS: 99211

== ENCOUNTER 2021-05-11 09:37 | Day surgery (SDC) | payer MEDICARE, BC ==
[2021-05-05 14:25] VITALS: BMI 26.2
[2021-05-11 10:11] VITALS: TEMP 97.4
[2021-05-11] MEDS ORDERED: fentaNYL (PF) 50 MCG/ML 2 ML AMP ONE (10:19)
[2021-05-11] MEDS ORDERED: DEXAMETHASONE SOD PHOSPHATE 10 MG/ML 1 ML VIAL ONE (10:19)
[2021-05-11] MEDS ORDERED: IOPAMIDOL M200 10 ML VIAL ONE (10:19)
[2021-05-11] MEDS ORDERED: MIDAZOLAM 2 MG/2 ML VIAL ONE (10:19)
--- NOTE | 2021-05-11 10:41 | P.PCN ---
Date of Procedure: 05/11/21 Description of Procedure: Pre- and Post-operative Diagnosis: Cervical radiculopathy Procedure: Right-sided C7-T1 Inter-Laminar Cervical Epidural Steroid Injection under biplanar fluoroscopy #3 Surgeon: Lucio García Anesthesia: Local: 1% Lidocaine, IV sedation : Versed, and fentanyl. Complications: None. Estimated blood loss: None Specimens removed: None Fluoroscopic image: saved to electronic medical records. Indications for Procedure: The patient has been suffering from neck pain and pain radiating to the upper extremity . Patient had good pain relief with the previous epidural steroid injection more than 80% relief for 3 weeks duration , which helped pain radiating to upper extremities. Inadequate pain control with pharmacologic regimen. Repeat inter-laminar approach cervical epidural steroid injection was scheduled for the patient. Procedure and Findings: The patient was seen and examined in the holding area. The written informed consent was obtained after explaining the risks, benefits, alternatives of the procedure to the patient. The patient was brought to the procedure room and was placed in the prone position on the operating table. A pillow was placed under the upper chest. Standard anesthesia monitoring was done through out the procedure. Timeout was completed. The skin preparation was done with ChloraPrep 1 and draping was done in usual sterile fashion. Sterile technique was observed throughout the procedure. Under fluoroscopic guidance, the C7-T1 inter-laminar space was identified. 3 ml of 1% Lidocaine was injected with a 25 gauge needle to achieve adequate local anesthesia of the skin and subcutaneous tissue. A 20 gauge, 3.5 inch Tuohy type epidural needle was placed and gradually advanced up to the epidural space using loss of resistance technique and fluoroscopic guidance. Lateral, oblique fluoroscopic views confirm the needle position. No paresthesia was noted. A negative aspiration was confirmed and then 1 ml of Isovue-200 was injected. A good dye spread was seen in the epidural space and it was negative for any intrathecal, intraneural or intravascular spread. A total of 6 ml solution containing 20 mg Dexamethasone, and 4 ml preservative-free Normal Saline was injected slowly with intermittent aspiration. The needle was removed intact, area was cleaned and bandage was applied. Disposition : The patient tolerated the procedure very well. The patient was transferred to the recovery room and remained stable until discharged home. The patient was given detailed discharge instructions for bleeding, infection, increased pain at the injection site, and was advised to seek immediate medical attention should significant side effects develop. The patient will be followed up with our Pain [facility] within 4 weeks for follow-up visit.
[2021-05-11] MEDS ORDERED: IV FLUID CONTINUATION 1,000 ML IV ONE (10:53)
--- NOTE | 2021-05-11 10:58 | FL ---
EXAMINATION TYPE: FL guided pain mgmt statistic DATE OF EXAM: 05/11/2021 HISTORY: Fluoroscopy time 5 seconds of fluoroscopy provided. IMPRESSION: 1. Fluoroscopy time.
[2021-05-11 11:10] VITALS: BP 123/81; PULSE 71; RESP 16
== END 2021-05-11 11:26 | disposition home or self-care (01) ==
LOC: ORPAIN 09:37
DX: M54.2 Cervicalgia (principal); M54.12 Radiculopathy, cervical region; Z87.820 Personal history of traumatic brain injury; Z98.890 Other specified postprocedural states; Z88.8 Allergy status to other drugs, medicaments and biological substances
CPT/HCPCS: 81025; 62321; J2250; J1100; J3010; Q9966; 99152

== ENCOUNTER → 2021-06-07 | Outpatient (CLI) | payer MEDICARE, BC ==
--- NOTE | 2021-06-07 10:48 | P.PN ---
Subjective Progress Note Date: 06/07/21 Principal diagnosis: A 50 yr old female with mother at side with a history of severe and chronic neck pain secondary to degenerative disc diseases and spondylosis with facet arthropathy presents today for a follow-up of the right paramedian C7 to T8 KASH. Patient states he expressed 90% pain relief for approximately 3 weeks status post procedure Pain level is currently at a 3 out of 10 in intensity but can elevate as high as a 10 out of 10 intensity in the right side of the back of her neck with right upper extremity tingling and numbness and occasional stabbing pain to her right elbow. Pain is elicited without provocation. Pain is alleviated with medications, injections, physical therapy in the past, home exercise regimen, use of a soft c-collar, repositioning and rest. Interventional pain procedures completed include R paramedian KASH of the C7-T1 Patient is currently on Tylenol and Motrin OTC Patient denies any side effects of the medication(s), denies excessive drowsiness or sleepiness, denies suicidal ideation and reports that the current pain medication is helping to control the pain and improve activities of daily living. Patient denies any motor or sensory deficits. Patient denies any fever or night sweats, denies any change in the bowel movements or urination. Physical Examination: -Constitutional: Cooperative. Not in acute distress . -HEENT: Neck is supple. No lymphadenopathy. No thyromegaly. Normal thyroid size. Eyes: No ptosis , no icterus, no photophobia. ENT: No auditory deficits. Normal oropharynx. No Thrush. - Respiratory: Chest clear to auscultations bilaterally. No wheezing. No rhonchi. - Cardiovascular: Regular rate and rhythm. S1 / S2 , no S3 , no S4. - Gastrointestinal: Abdomen soft no tenderness. Bowel sounds positive in all four quadrants. No organomegaly. - Genitourinary: Deferred. - Neurologic: Cranial nerve II to XII intact. No focal neurological deficits. - Psychatric: Alert & oriented x 3. Matching mood & appropriate affect. Judgment and insight intact. - Lymphatic: No Lymphadenopathy. - Musculoskeletal: Cervical spine: Minimal C7 vertebral body tenderness to deep palpation Muscle bulk/ tone/ strength in the bilateral upper extremities normal. Facet loading test cervical area positive over the right C7 facet Spurling test positive Distraction test positive Lumbar spine: Motor bulk/ tone/ strength lower extremities , thigh and legs : 5/5 Deep tendon reflexes : Normal Knee Jerk. Normal Ankle Jerk . Lumbar Facet Loading Test positive Straight Leg Raise: positive at 30 degree right side/ left side Earnestine test: positive right side / left side Range of motion: Range of motion in flexion of the lumbar spine <60 degrees Range of motion: Extension of the lumbar spine <20 degrees Severe tenderness over the Sacroiliac joint: right side / left side Assessment and plan: Chronic neck pain secondary to cervical degenerative disc disease , spondylosis with facet arthropathy without myelopathy Recommendation for right C7 to T1 KASH #2 Discontinue aspirin 5 days prior to procedure Risks, benefits of the procedure discussed and patient verbalized understanding All patient questions answered MAPS reviewed and it was appropriate. I have spent 31 minutes on patient care today. Dr Farrell was available by phone for the evaluation of this patient. The time was used to review the medical records including relevant urine studies and Prescription history (MAPs), review of the available imaging, evaluation and examination of the patient, coordination of care with the medical staff and if applicable referring physicians, as well as creation of the medical record PQRS Measure Charge Sheet Mode of Arrival: Walker - Pain Location Neck Pharmacological Interventions: Block, PRN Medication PQRS Narrative: Smoking Status Current every day smoker Pain Intensity [Neck] 0 Scale Used Numeric (1 - 10) Hx Alcohol Use (MH) Yes: Rarely. Home Medications: Ambulatory Orders Latanoprost/Pf [Latanoprost 0.005% Eye Drop] 1 drop BOTH EYES HS 08/09/18 lamoTRIgine [LaMICtal] 150 mg PO BID 09/02/18 Acetaminophen Tab [Tylenol] 500 mg PO Q4-6H PRN 04/28/20 Albuterol Nebulized [Ventolin Nebulized] 2.5 mg INHALATION Q6H PRN 11/26/20 Aspirin [Adult Low Dose Aspirin EC] 81 mg PO DAILY 11/26/20 Calcium Carbonate/Vitamin D3 [Calcium 600 mg-D3 20 mcg (800 unit)] 1 each PO BID 11/26/20 Medroxyprogesterone Acetate [Depo-Provera] 150 mg IM Q90D 05/05/21 Sertraline [Zoloft] 50 mg PO QAM 06/03/21
[2021-06-07 11:01] VITALS: BP 118/72; PULSE 91; RESP 18; TEMP 98.1
== END ==
LOC: PNWHC3 10:24
PROVIDERS: ATTEND Anesthesiology
DX: M50.30 Other cervical disc degeneration, unspecified cervical region (principal); M47.812 Spondylosis without myelopathy or radiculopathy, cervical region; G89.29 Other chronic pain; F17.200 Nicotine dependence, unspecified, uncomplicated; Z88.8 Allergy status to other drugs, medicaments and biological substances; Z88.1 Allergy status to other antibiotic agents
CPT/HCPCS: 99211

== ENCOUNTER → 2022-01-21 | Outpatient (CLI) | payer MEDICARE, BC ==
--- NOTE | 2022-01-24 19:30 | MM ---
Reason for Exam: Screening (asymptomatic). Last mammogram was performed 4 year(s) and 2 month(s) ago. Patient History: Menarche at age 15. Paternal grandmother had breast cancer. Risk Values: Mesha 5 year model risk: 0.7%. NCI Lifetime model risk: 6.6%. Prior Study Comparison: 08/05/2014 Right Diagnostic Mammogram, [facility]. 09/09/2016 Bilateral Screening Mammogram, [facility]. 11/08/2017 Bilateral Screening Mammogram, [facility]. Tissue Density: The breast tissue is heterogeneously dense. This may lower the sensitivity of mammography. Findings: Analyzed By CAD. Microclip 5:00 posterior right breast from prior biopsy. Some regional round/punctate calcification central right breast are unchanged. No significant change from prior exams. Overall Assessment: Benign, BI-RAD 2 Management: Screening Mammogram of both breasts in 1 year. 1. Patient should continue monthly self breast exams. 2. A clinical breast exam by your physician is recommended on an annual basis. 3. This exam should not preclude additional follow-up of suspicious palpable abnormalities. Electronically signed and approved by: Abhishek Proctor M.D. Radiologist
== END | disposition home or self-care (01) ==
LOC: RADMAMWWP 14:45
PROVIDERS: ATTEND Obstetrics & Gynecology
DX: Z12.31 Encounter for screening mammogram for malignant neoplasm of breast (principal); Z80.3 Family history of malignant neoplasm of breast
CPT/HCPCS: 77063; 77067

== ENCOUNTER → 2022-04-13 | Outpatient (CLI) | payer OTHER, MEDICARE, BC ==
--- NOTE | 2022-04-13 15:49 | CT ---
EXAMINATION TYPE: CT brain wo con DATE OF EXAM: 04/13/2022 COMPARISON: 09/02/2018 HISTORY: Follow up for traumatic brain injury, patient complaining of memory issues. CT DLP: 1184.9 mGycm. Automated Exposure Control for Dose Reduction was Utilized. TECHNIQUE: CT scan of the head is performed without contrast. FINDINGS: There is no acute intracranial hemorrhage, mass effect, or midline shift identified. The ventricles and sulci are consistent with moderate degenerative change. Low attenuation in the white matter is nonspecific. Chronic appearing calvarial defect on the right correlate for prior craniotomy . The globes are intact and the visualized sinuses are clear. IMPRESSION: 1. No acute intracranial hemorrhage, mass effect, or midline shift is seen. 2. There is degenerative and nonspecific low attenuation in the white matter most typical of remote i schemia. Suspect a small focal area of encephalomalacia involving the right right frontal lobe stable from prior exam.
== END | disposition home or self-care (01) ==
LOC: RADCTMAIN 13:45
PROVIDERS: ATTEND Physical Medicine & Rehabilitation
DX: G31.9 Degenerative disease of nervous system, unspecified (principal); G81.02 Flaccid hemiplegia affecting left dominant side; Z87.820 Personal history of traumatic brain injury
CPT/HCPCS: 70450

== ENCOUNTER → 2022-08-17 | Outpatient (CLI) | payer MEDICARE, BC, OTHER ==
--- NOTE | 2022-08-18 09:26 | XR ---
EXAMINATION TYPE: XR hand complete RT DATE OF EXAM: 08/17/2022 COMPARISON: None HISTORY: Pain and scaphoid region, history of multiple falls no recent TECHNIQUE: Three-view right hand FINDINGS: No acute fracture or dislocation is evident. No subacute fractures identified. Mild diffuse joint space narrowing of the proximal and distal interphalangeal joint spaces noted. Soft tissues ap pear normal. No radiopaque foreign bodies evident. IMPRESSION: 1. No acute or subacute osseous abnormality. 2. Chronic degenerative joint changes of the digits.
--- NOTE | 2022-08-18 09:28 | XR ---
EXAMINATION TYPE: XR wrist complete RT DATE OF EXAM: 08/17/2022 COMPARISON: None HISTORY: Multiple falls, pain in scaphoid region TECHNIQUE: 4 view right wrist FINDINGS: No acute or subacute fractures evident. Soft tissues appear normal. Joint spaces appear pre served. Additional evaluation would be of benefit, consider MRI to evaluate soft tissues and wrist ligaments. IMPRESSION: 1. No acute osseous abnormality radiographically apparent. MRI can be performed as clinically indica mara.
== END | disposition home or self-care (01) ==
LOC: RADXRMAIN 15:45
PROVIDERS: ATTEND Physical Medicine & Rehabilitation
DX: M19.041 Primary osteoarthritis, right hand (principal); M79.641 Pain in right hand; R29.6 Repeated falls

== ENCOUNTER → 2023-05-26 | Outpatient (CLI) | payer MEDICARE, BC, SELFPAY ==
--- NOTE | 2023-05-29 09:26 | MM ---
Reason for Exam: Screening (asymptomatic). Last mammogram was performed 1 year(s) and 4 month(s) ago. Patient History: Menarche at age 15. Patient has no children. Postmenopausal. Paternal grandmother had breast cancer. Risk Values: Mesha 5 year model risk: 1.1%. NCI Lifetime model risk: 9.9%. Prior Study Comparison: 07/30/2014 Bilateral Screening Mammogram, [facility]. 08/05/2014 Right Diagnostic Mammogram, [facility]. 09/09/2016 Bilateral Screening Mammogram, [facility]. 11/08/2017 Bilateral Screening Mammogram, [facility]. 01/21/2022 Bilateral MG 3D screening mammo w/cad, [facility]. Tissue Density: The breast tissue is heterogeneously dense. This may lower the sensitivity of mammography. Findings: Analyzed By CAD. There is no suspicious group of microcalcifications or new suspicious mass in either breast. Overall Assessment: Benign, BI-RAD 2 Management: Screening Mammogram of both breasts in 1 year. . Patient should continue monthly self-breast exams. A clinical breast exam by your physician is recommended on an annual basis. This exam should not preclude additional follow-up of suspicious palpable abnormalities. Note on Mesha scores and lifetime risk: 1. A Mesha score greater than 3% is considered moderate risk. If this is the case, consider specialist referral to assess eligibility for a risk reducing agent. 2. If overall lifetime risk for the development of breast cancer is 20% or higher, the patient may qualify for future screening with alternating mammogram and breast MRI. Electronically signed and approved by: Dwayne Young M.D. Radiologis
== END | disposition home or self-care (01) ==
LOC: RADMAMWWP 11:02
PROVIDERS: ATTEND Obstetrics & Gynecology
DX: Z12.31 Encounter for screening mammogram for malignant neoplasm of breast (principal); Z80.3 Family history of malignant neoplasm of breast; Z78.0 Asymptomatic menopausal state
CPT/HCPCS: 77063; 77067

== ENCOUNTER → 2023-09-21 | Outpatient (CLI) | payer OTHER, MEDICARE, BC ==
--- NOTE | 2023-09-21 18:47 | CT ---
EXAMINATION TYPE: CT orbits wo/w con CT DLP: 875.3 mGycm, Automated exposure control for dose reduction was used. DATE OF EXAM: 09/21/2023 6:04 PM COMPARISON: 08/09/2018.. CLINICAL INDICATION:Female, 52 years old with history of S02.30XA FRACTURE OF ORBITAL FLOOR, UNSPECIF IED SI; PHH, Fx of orbital floor unspecified. TECHNIQUE: Orbits: Axial CT with coronal and sagittal reformats through the orbits. No IV or oral contrast was u tilized. Findings: Orbital Contents: * Globes: Normal. * Preseptal Tissues: Normal. * Intraconal Structures: Normal. * Extraconal Structures and Lacrimal Glands: Normal. * Orbital [place]: Normal. Sella Turcica and Cavernous Sinuses: The sella turcica and cavernous sinus regions are intact and sym metric. Visualized Brain Parenchyma: Normal. Paranasal Sinuses and Surrounding Structures: The paranasal sinuses are intact. The mastoid air cells and skull base is intact. Musculoskeletal: Inferior left orbit bony irregularity suggestive of prior fracture. However this is stable from 08/09/2018. The medial left orbital wall also demonstrates prior lamina Propecia fracture. Other: Soft tissues are within normal limits. IMPRESSION: Deformity to the left inferior orbital and medial orbital appiah not significantly changed from 2019. No evidence for acute fracture.
== END | disposition home or self-care (01) ==
LOC: RADCTMAIN 17:20
PROVIDERS: ATTEND Ophthalmology
DX: H05.332 Deformity of left orbit due to trauma or surgery (principal); S02.30XA Fracture of orbital floor, unspecified side, initial encounter for closed fracture; X58.XXXA Exposure to other specified factors, initial encounter
CPT/HCPCS: 70482; Q9967

== ENCOUNTER → 2023-09-29 | Outpatient (CLI) | payer MEDICARE, BC ==
[2023-09-29 19:24] LABS: Blood Urea Nitrogen 11.2 mg/dL (9.0-27.0)
== END | disposition home or self-care (01) ==
LOC: LABWHC1 12:20
PROVIDERS: ATTEND Ophthalmology
DX: S02.32XA Fracture of orbital floor, left side, initial encounter for closed fracture (principal); X58.XXXA Exposure to other specified factors, initial encounter
CPT/HCPCS: 36415; 82565; 84520

== ENCOUNTER → 2024-07-19 | Outpatient (CLI) | payer MEDICARE, BC ==
--- NOTE | 2024-07-19 15:05 | MM ---
Reason for Exam: Screening (asymptomatic). Last mammogram was performed 1 year(s) and 2 month(s) ago. Patient History: Menarche at age 15. Patient has no children. Postmenopausal. Patient used Hormonal Contraceptives for 10 years. Paternal grandmother had breast cancer. Risk Values: Mesha 5 year model risk: 1.1%. NCI Lifetime model risk: 9.7%. Prior Study Comparison: 11/08/2017 Bilateral Screening Mammogram, [facility]. 01/21/2022 Bilateral MG 3D screening mammo w/cad, [facility]. 05/26/2023 Bilateral MG 3D screening mammo w/cad, [facility]. Tissue Density: The breasts are extremely dense, which lowers the sensitivity of mammography. Findings: Analyzed By CAD. Mammotome biopsy clip in the right breast is redemonstrated. Benign-appearing right axillary lymph nodes are again seen. There is no suspicious new group of microcalcifications or new suspicious mass in either breast. Overall Assessment: Benign, BI-RAD 2 Management: Screening Mammogram of both breasts in 1 year. . Patient should continue monthly self-breast exams. A clinical breast exam by your physician is recommended on an annual basis. This exam should not preclude additional follow-up of suspicious palpable abnormalities. Note on Mesha scores and lifetime risk: 1. A Mesha score greater than 3% is considered moderate risk. If this is the case, consider specialist referral to assess eligibility for a risk reducing agent. 2. If overall lifetime risk for the development of breast cancer is 20% or higher, the patient may qualify for future screening with alternating mammogram and breast MRI. [facility], , 07/19/2024 3:02 PM. Electronically signed and approved by: Magno Grover M.D.
== END | disposition home or self-care (01) ==
LOC: RADMAMWWP 13:42
PROVIDERS: ATTEND Internal Medicine
DX: Z12.31 Encounter for screening mammogram for malignant neoplasm of breast (principal); R92.343 Mammographic extreme density, bilateral breasts; Z78.0 Asymptomatic menopausal state; Z92.0 Personal history of contraception; Z80.3 Family history of malignant neoplasm of breast
CPT/HCPCS: 77063; 77067